=== PATIENT | female | born 1970 | race Two or more races ===

== ENCOUNTER 2018-05-15 12:22 | Inpatient (IN) | payer OTHER ==
[~2018-05-15] VITALS: Ht 157.5 cm; Wt 59.9 kg
[2018-05-17] MEDS ORDERED: PRENATAL 19 TA1 EAC1 (09:28)
== END 2018-05-17 13:59 | disposition home or self-care (01) | DRG 760 ==
LOC: ER 12:22 → SEC-K 16:17 → OB/GYN 05-16 15:41
PROC: BU4CZZZ Ultrasonography of Uterus and Ovaries (ICD-10-PCS; 2018-05-15)
PROC: 30233N1 Transfusion of Nonautologous Red Blood Cells into Peripheral Vein, Percutaneous Approach (ICD-10-PCS; 2018-05-15)
PROC: 0UJD7ZZ Inspection of Uterus and Cervix, Via Natural or Artificial Opening (ICD-10-PCS; principal; 2018-05-16)
DX: N93.8 Other specified abnormal uterine and vaginal bleeding (principal); D62 Acute posthemorrhagic anemia; N83.291 Other ovarian cyst, right side